=== PATIENT | male | born 1990 | race Caucasian/White ===

== ENCOUNTER 2019-12-17 12:09 | Emergency (ER) | payer OTHER ==
[~2019-12-17] VITALS: Ht 172.7 cm; Wt 90.7 kg
[2019-12-17] MEDS ORDERED: TOBRADEX EYE DRO5 ML OPHTHALMIC (12:52)
[2019-12-17] MEDS ORDERED: KEFLEX500 M1 PO (12:52)
[2019-12-17 12:58] VITALS: BP 121/72
== END 2019-12-17 12:58 | disposition home or self-care (01) ==
LOC: M.ERS 12:09
DX: H10.89 Other conjunctivitis (principal); B96.89 Other specified bacterial agents as the cause of diseases classified elsewhere; H11.422 Conjunctival edema, left eye

== ENCOUNTER 2020-08-25 16:03 | Emergency (ER) | payer OTHER ==
[~2020-08-25] VITALS: Ht 182.9 cm; Wt 83.9 kg
[~2020-08-25 16:03] MED LIST: KEFLEX500 M1 PO; TOBRADEX EYE DRO5 ML OPHTHALMIC
[2020-08-25] MEDS ORDERED: FEXOFENADINE-P1 EACH PO (16:09)
[2020-08-25 16:35] LABS: ABSOLUTE EOSINOPHILS 0.1 thou/uL (0.0-0.7); ABSOLUTE LYMPHOCYTES 1.8 thou/uL (0.8-5.3); ABSOLUTE MONOCYTES 0.5 thou/uL (0.0-1.2); ABSOLUTE NEUTROPHILS 5.5 thou/uL (1.6-8.1); BASOPHILS 0.5 %; EOSINOPHILS 1.1 %; HEMATOCRIT 39.4 % (42.0-52.0); LYMPHOCYTES 22.9 %; MCH 32.2 pg (26.0-34.0); MCHC 35.5 g/dL (28.0-37.0); MCV 90.8 fL (80.0-100.0); MONOCYTES 6.3 %; MPV 9.2 fl. (7.2-11.1); NUCLEATED RBCS 0 /100WBC; PLATELET COUNT* 145 thou/uL (150-400); POLYS 69.2 %; RBC 4.34 mil/uL (4.50-6.00); RDW-CV 12.4 % (10.5-14.5); WBC 7.9 thou/uL (4.0-11.0)
[2020-08-25 16:43] LABS: CALCIUM 8.5 mg/dL (8.5-10.1); CREATININE 1.2 mg/dL (0.6-1.3); POTASSIUM 3.7 mmol/L (3.5-5.1)
[2020-08-25 16:47] LABS: ALBUMIN 4.2 g/dL (3.4-5.0); TOTAL BILIRUBIN 0.3 mg/dL (<0.1-1.0); TOTAL PROTEIN 7.7 g/dL (6.4-8.2)
[2020-08-25 20:06] VITALS: BP 131/74
--- NOTE | 2020-08-26 10:17 | EKG ---
[place] [address] ELECTROCARDIOGRAM REPORT Name: WALLY CHILD Room: [facility]#: [id number] Admission: 08/25/20 Attend Phys: Discharge: 08/25/20 Date of : 89 Date of Service: 08/25/201606 Report #: [id number] THIS REPORT FOR: //name// [facility] ED Test Date: 2020-08-25 Test Time: 16:07:25 Pat Name: WALLY CHILD Department: Room: Gender: Claim Auditor: [facility] : 1990 Requested By: Clotilde Espinoza Order Number: [id number] MD: Ti Kline Measurements Intervals [place] Rate: 73 P: 44 [place]: 169 QRS: 74 QRSD: 106 T: 50 QT: 375 QTc: 414 Interpretive Statements Sinus rhythm No previous ECG available for comparison Electronically Signed On 08-26-2020 10:17:33 CDT by Ti Kline [email or web address] <ELECTRONICALLY SIGNED> By: Ti Kline MD, [facility] 08/26/20 1017 06 1607 Ti Kline MD, FACC /EPI
== END 2020-08-25 20:06 | disposition home or self-care (01) ==
LOC: M.ERS 16:03
PROVIDERS: Nurse Practitioner Family
DX: S06.0X1A Concussion with loss of consciousness of 30 minutes or less, initial encounter (principal); R55 Syncope and collapse; W22.8XXA Striking against or struck by other objects, initial encounter; Y93.89 Activity, other specified; Y92.89 Other specified places as the place of occurrence of the external cause; Y99.8 Other external cause status